=== PATIENT | male | born 1990 | race Caucasian/White ===

== ENCOUNTER 2016-12-20 15:55 | Emergency (ER) | payer OTHER ==
--- NOTE | 2016-12-20 16:54 | ED NURSING NOTES ---
Clinical Report - Nurses [facility] [address] [place] [address] 12/20/2016 15:56 Patient: ROLO ZAMORA TRIAGE Triage time 1627 PM. Chief Complaint: SORE THROAT. Alert. No acute distress. --16:32 Zac Jefferson R.N. 16:27 12/20/16. BP: 124/77 taken on the left arm, via an automated monitor, while lying. HR: 93. RR: 16. O2 saturation: 97%. Temp: 98.7 F (oral). Pain level now: cannot qualify. --16:32 Zac Jefferson R.N. Weight: 122.4 kg stated. Height/Length: 73 inches Per Patient. BMI: 35.6. --16:27 Zac Jefferson R.N. Medications Topamax Oral. --16:29 Zac Jefferson R.N. Allergies NKDA. --16:28 Zac Jefferson R.N. History Arrived by private vehicle. Historian: patient. Accompanied by family. Onset. (about 2 months). ( Patient presents to the ED with symptoms of cough, congestion, and sore throat x 2 months. Patient reports left sided tonsilar pain and right sided ear pain. Patient states that he is coughing up brownish mucus.). He has had mouth sores and sinus pain. He has had mild right ear pain. 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 PAST MEDICAL HX: Strep throat. SOCIAL HX: Current every day light tobacco smoker (cigarette)- less than 1/2 a pack per day. Regular alcohol use. History of drug use. (no). FALL RISK ASSESSMENT: Fall risk assessment completed. No fall risk identified. NUTRITIONAL RISK ASSESSMENT: The nutritional risk assessment revealed no deficiencies. FUNCTIONAL ASSESSMENT: Functional assessment: no impairments noted. LEARNING NEEDS ASSESSMENT: The learning needs assessment revealed no barriers. SKIN INTEGRITY ASSESSMENT: Skin integrity risk assessment completed. No skin integrity risk identified. --16:32 Zac Jefferson R.N. PROBLEMS: Migraine Headache. --16:29 Zac Jefferson R.N. ADDITIONAL SURGERIES: no known surgeries. Interventions ID band on patient. --16:32 Zac Jefferson R.N. PHYSICAL ASSESSMENT Ambulatory to room. GENERAL / NEURO / PSYCH: Alert. Oriented X 4. Appears in no acute distress. HEENT: Sinus tenderness present. Pupils equal, round and reactive to light. Runny nose. Mouth within normal limits upon inspection. No dental injury noted. Mucous membranes are pink. RESPIRATORY: Respirations not labored. CVS: Capillary refill less than 2 seconds. SKIN: Skin is warm and dry. Normal skin turgor. --16:33 Zac Jefferson R.N. DISPOSITION / DISCHARGE Condition at departure: improved. The goals identified in the patient's plan of care were met. No learning barriers present. Reviewed medication(s) side effects, precautions, dosing and course information. Prescription(s) given to the patient. Reviewed fever care instructions. Reviewed referral to a primary care physician. Patient verbalized understanding. Written instructions provided in Micronesian. The patient was discharged home and accompanied by family. He left the Emergency Department ambulatory and via private vehicle. Family member driving. FALL RISK ASSESSMENT: Fall risk assessment completed. No fall risk identified. --17:38 Zac Jefferson R.N. 17:37 12/20/16. BP: 115/72 taken on the left arm, via an automated monitor, while lying. HR: 101. RR: 18. O2 saturation: 98% on room air. Temp: 98.2 F (oral). Pain level now: 0/10. --17:38 Zac Jefferson R.N. Departure time: 1738 PM. --17:38 Zac Jefferson R.N. Locked/Released at 12/20/2016 17:38 by Zac Jefferson R.N.
--- NOTE | 2016-12-20 16:54 | ED NURSING NOTES ---
Clinical Report - Nurses [facility] [address] [place] [address] 12/20/2016 15:56 Patient: ROLO ZAMORA TRIAGE Triage time 1627 PM. Chief Complaint: SORE THROAT. Alert. No acute distress. --16:32 Zac Jefferson R.N. 16:27 12/20/16. BP: 124/77 taken on the left arm, via an automated monitor, while lying. HR: 93. RR: 16. O2 saturation: 97%. Temp: 98.7 F (oral). Pain level now: cannot qualify. --16:32 Zac Jefferson R.N. Weight: 122.4 kg stated. Height/Length: 73 inches Per Patient. BMI: 35.6. --16:27 Zac Jefferson R.N. Medications Topamax Oral. --16:29 Zac Jefferson R.N. Allergies NKDA. --16:28 Zac Jefferson R.N. History Arrived by private vehicle. Historian: patient. Accompanied by family. Onset. (about 2 months). ( Patient presents to the ED with symptoms of cough, congestion, and sore throat x 2 months. Patient reports left sided tonsilar pain and right sided ear pain. Patient states that he is coughing up brownish mucus.). He has had mouth sores and sinus pain. He has had mild right ear pain. 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 PAST MEDICAL HX: Strep throat. SOCIAL HX: Current every day light tobacco smoker (cigarette)- less than 1/2 a pack per day. Regular alcohol use. History of drug use. (no). FALL RISK ASSESSMENT: Fall risk assessment completed. No fall risk identified. NUTRITIONAL RISK ASSESSMENT: The nutritional risk assessment revealed no deficiencies. FUNCTIONAL ASSESSMENT: Functional assessment: no impairments noted. LEARNING NEEDS ASSESSMENT: The learning needs assessment revealed no barriers. SKIN INTEGRITY ASSESSMENT: Skin integrity risk assessment completed. No skin integrity risk identified. --16:32 Zac Jefferson R.N. PROBLEMS: Migraine Headache. --16:29 Zac Jefferson R.N. ADDITIONAL SURGERIES: no known surgeries. Interventions ID band on patient. --16:32 Zac Jefferson R.N. PHYSICAL ASSESSMENT Ambulatory to room. GENERAL / NEURO / PSYCH: Alert. Oriented X 4. Appears in no acute distress. HEENT: Sinus tenderness present. Pupils equal, round and reactive to light. Runny nose. Mouth within normal limits upon inspection. No dental injury noted. Mucous membranes are pink. RESPIRATORY: Respirations not labored. CVS: Capillary refill less than 2 seconds. SKIN: Skin is warm and dry. Normal skin turgor. --16:33 Zac Jefferson R.N. DISPOSITION / DISCHARGE Condition at departure: improved. The goals identified in the patient's plan of care were met. No learning barriers present. Reviewed medication(s) side effects, precautions, dosing and course information. Prescription(s) given to the patient. Reviewed fever care instructions. Reviewed referral to a primary care physician. Patient verbalized understanding. Written instructions provided in Malagasy. The patient was discharged home and accompanied by family. He left the Emergency Department ambulatory and via private vehicle. Family member driving. FALL RISK ASSESSMENT: Fall risk assessment completed. No fall risk identified. --17:38 Zac Jefferson R.N. 17:37 12/20/16. BP: 115/72 taken on the left arm, via an automated monitor, while lying. HR: 101. RR: 18. O2 saturation: 98% on room air. Temp: 98.2 F (oral). Pain level now: 0/10. --17:38 Zac Jefferson R.N. Departure time: 1738 PM. --17:38 Zac Jefferson R.N. Locked/Released at 12/20/2016 17:38 by Zac Jefferson R.N.
--- NOTE | 2016-12-20 16:54 | ED CLINICAL REPORT ---
Clinical Report - Physicians/Mid Levels [facility] [address] [place] [address] 12/20/2016 15:56 Patient: ROLO ZAMORA Time Seen: 16:22; initial patient contact, initial documentation, patient care assumed. Arrived- By private vehicle. Historian- patient. HISTORY OF PRESENT ILLNESS Chief Complaint: COUGH and SORE THROAT. This started about 2 months ago and is still present. The illness is described as severe. The patient has had a cough, nasal congestion, sinus pressure, sinus drainage and a nasal discharge. He has had scant amounts of thin, brown sputum. No difficulty breathing, chest discomfort or pain, fever or muscle aches. He has had a sore throat (L tonsil feels swollen). It has been associated with pain upon swallowing. No difficulty swallowing. He has had mild right ear pain. (mouth sores). Additional history - No known contact with a sick individual. No recent travel. Similar symptoms previously: None. Recent medical care: The patient was seen recently at another facility in the emergency department. ( went to another er around 11/26, dx with sinusitis, given nasal spray, no better, no f/u). REVIEW OF SYSTEMS The patient has had a severe, pressure-like frontal and facial headache. No vomiting or diarrhea. All systems otherwise negative, except as recorded above. PAST HISTORY See nurses notes. PROBLEMS: Migraine Headache. --16:29 Zac Jefferson R.N. ADDITIONAL SURGERIES: no known surgeries. SOCIAL HISTORY Light tobacco smoker. Regular alcohol use. Not exposed to second-hand smoke at home. No drug use. No recent travel. Is a local resident. FAMILY HISTORY Negative. ADDITIONAL NOTES The nursing notes have been reviewed with agreement regarding the chief complaint, HPI, ROS, PMH and patient medications and allergies. PHYSICAL EXAM Vital Signs: 12/20/2016 16:27 BP: 124/77. HR: 93. RR: 16. O2 saturation: 97%. Temp: 98.7 F. Have been reviewed as normal and appear to be correct. Appearance: Alert. No acute distress. Eyes: Pupils equal, round and reactive to light. Eyes normal inspection. ENT: Ears normal. Nose normal. Pharynx normal. Uvula midline. Neck: Normal inspection. Neck supple. CVS: Normal heart rate and rhythm. Heart sounds normal. Pulses normal. Respiratory: No respiratory distress. Breath sounds normal. Back: Normal inspection. Skin: Skin warm and dry. Normal skin color. No rash. Normal skin turgor. Extremities: Extremities exhibit normal ROM. No lower extremity edema. Neuro: Oriented X 3. No motor deficit. No sensory deficit. PROGRESS AND PROCEDURES Patient counseled in person regarding the patient's stable condition and diagnosis. 16:54. Differential Diagnosis: Other possible considerations: flu, viral illness, uri, sinusitis, pneumonia, bronchitis. Above considerations are based on history and physical exam. Differential diagnosis was discussed with patient. Disposition: Discharged home in good and unchanged condition (16:54). Condition: good and stable. CLINICAL IMPRESSION Recurrent sinusitis INSTRUCTIONS Drink plenty of fluids. Warnings: GENERAL WARNINGS: Return or contact your physician immediately if your condition worsens or changes unexpectedly, if not improving as expected, or if other problems arise. Specifically return if problem worsens. Prescription Medications: Augmentin 875 mg: take 1 tablet orally every 12 hours for 10 days. No refill. Motrin 800 mg tablets: take 1 tablet orally every 8 hours as needed for pain. Dispense thirty (30). No refills. Substitution is permissible. Follow-up: Follow up with your doctor in about five days even if well. Call for an appointment. Summary of care provided to patient. Understanding of the discharge instructions verbalized by patient. (Electronically signed by Denisse Ty A.R.N.P. 12/20/2016 20:21)
--- NOTE | 2016-12-20 20:23 | ED MAR SUMMARY ---
..... Medication Administration Record [facility] [address], [place] [id number] Patient: MARISA ZAMORACJ Aragon Visit ID: [id number] 26y, M Weight: 122.4 kg Height/Length: 73 in BMI: 35.6 ALLERGIES: NKDA
--- NOTE | 2016-12-20 20:23 | ED DISCHARGE INSTRUCTIONS ---
Patient: ROLO ZAMORA General Instructions [facility] VisitID: [id number] [place] [address] 26y, M Registration Date/Time: 12/20/2016 Recurrent sinusitis INSTRUCTIONS Drink plenty of fluids. Warnings: GENERAL WARNINGS: Return or contact your physician immediately if your condition worsens or changes unexpectedly, if not improving as expected, or if other problems arise. Specifically return if problem worsens. Prescription Medications: Augmentin 875 mg: take 1 tablet orally every 12 hours for 10 days. No refill. Motrin 800 mg tablets: take 1 tablet orally every 8 hours as needed for pain. Dispense thirty (30). No refills. Substitution is permissible. Follow-up: Follow up with your doctor in about five days even if well. Call for an appointment. Summary of care provided to patient. Understanding of the discharge instructions verbalized by patient. ADDITIONAL INFORMATION Sinusitis [Abx Tx] The sinuses are air-filled spaces within the bones of the face. They connect to the inside of the nose. Sinusitis is an inflammation of the tissue lining the sinus cavity. Sinus inflammation can occur during a cold or hay-fever (allergies to pollens and other particles in the air) and cause symptoms of sinus congestion and fullness. A sinus infection causes fever, headache and facial pain. There is usually green or yellow drainage from the nose or into the back of the throat (post-nasal drip). Antibiotics are prescribed to treat this condition. Home Care: Drink plenty of water, hot tea, and other liquids to stay well hydrated. This thins the mucus and promotes sinus drainage. Apply heat to the painful areas of the face. Use a towel soaked in hot water. Or, packer inspector the shower and direct the hot spray onto your face. This is a good way to inhale warm water vapor and get heat on your face at the same time. (Cover your mouth and nose with your hands so you can still breathe as you do this.) Use a vaporizer with products such as Vicks VapoRub (contains menthol) at night. Suck on peppermint, menthol or eucalyptus hard candies during the day. An expectorant containing guaifenesin (such as Robitussin), helps to thin the mucus and promote drainage from the sinuses. Ccui-hle-cnirhtn decongestants may be used unless a similar medicine was prescribed. Nasal sprays work the fastest. Use one that contains phenylephrine (Nasir-synephrine, Sinex and others) or oxymetazoline (Afrin). First blow the nose gently to remove mucus, then apply the drops. Do not use these medicines more often than directed on the label or for more than three days or symptoms may worsen. You may also use tablets containing pseudoephedrine (Sudafed). Many sinus remedies combine ingredients, which may increase side effects. Read the labels or ask the pharmacist for help. NOTE: Persons with high blood pressure should not use decongestants. They can raise blood pressure. Antihistamines are useful if allergies are a cause of your sinusitis. The mildest one is chlorpheniramine (available without a prescription). The dose for adults is 8-12mg three times a day. [NOTE: Do not use chlorpheniramine if you have glaucoma or if you are a man with trouble urinating due to an enlarged prostate.] Claritin (loratidine) is an antihistamine that causes less drowsiness and is a good alternative for daytime use. Do not use nasal rinses or irrigation during an acute sinus infection, unless advised by your doctor. Rinsing may spread the infection to other sinuses. You may use acetaminophen (Tylenol) or ibuprofen (Motrin, Advil) to control pain, unless another pain medicine was prescribed. [ NOTE: If you have chronic liver or kidney disease or ever had a stomach ulcer, talk with your doctor before using these medicines.] (Aspirin should never be used in anyone under 18 years of age who is ill with a fever. It may cause severe liver damage.) Finish the full course, even if you are feeling better after a few days. Follow Up with your doctor or this facility in one week or as instructed by our staff if not improving. Get Prompt Medical Attention if any of the following occur: Facial pain or headache becomes more severe Stiff neck Unusual drowsiness or confusion, or not acting like your normal self Swelling of the forehead or eyelids Vision problems including blurred or double vision Fever of 100.4F (38C) or higher, or as directed by your healthcare provider Seizure Amoxicillin Trihydrate, Clavulanate Potassium Oral tablet What is this medicine? AMOXICILLIN; CLAVULANIC ACID (a mox i SPENCER in; SERGIO donis freddie ic id) is a penicillin antibiotic. It is used to treat certain kinds of bacterial infections. It will not work for colds, flu, or other viral infections. How should I use this medicine? Take this medicine by mouth with a full glass of water. Follow the directions on the prescription label. Take at the start of a meal. Do not crush or chew. If the tablet has a score line, you may cut it in half at the score line for easier swallowing. Take your medicine at regular intervals. Do not take your medicine more often than directed. Take all of your medicine as directed even if you think you are better. Do not skip doses or stop your medicine early. Talk to your special education paraprofessional regarding the use of this medicine in children. Special care may be needed. What side effects may I notice from receiving this medicine? Side effects that you should report to your doctor or health care transitions nurse as soon as possible: allergic reactions like skin rash, itching or hives, swelling of the face, lips, or tongue breathing problems dark urine fever or chills, sore throat redness, blistering, peeling or loosening of the skin, including inside the mouth seizures trouble passing urine or change in the amount of urine unusual bleeding, bruising unusually weak or tired white patches or sores in the mouth or throat Side effects that usually do not require medical attention (report to your doctor or health care transitions nurse if they continue or are bothersome): diarrhea dizziness headache nausea, vomiting stomach upset vaginal or anal irritation What may interact with this medicine? allopurinol anticoagulants control pills methotrexate probenecid What if I miss a dose? If you miss a dose, take it as soon as you can. If it is almost time for your next dose, take only that dose. Do not take double or extra doses. Where should I keep my medicine? Keep out of the reach of children. Store at room temperature below 25 degrees C (77 degrees F). Keep container tightly closed. Throw away any unused medicine after the expiration date. What should I tell my health care provider before I take this medicine? They need to know if you have any of these conditions: bowel disease, like colitis kidney disease liver disease mononucleosis an unusual or allergic reaction to amoxicillin, penicillin, cephalosporin, other antibiotics, clavulanic acid, other medicines, foods, dyes, or preservatives or trying to get breast-feeding What should I watch for while using this medicine? Tell your doctor or health care transitions nurse if your symptoms do not improve. Do not treat diarrhea with over the counter products. Contact your doctor if you have diarrhea that lasts more than 2 days or if it is severe and watery. If you have diabetes, you may get a false-positive result for sugar in your urine. Check with your doctor or health care transitions nurse. control pills may not work properly while you are taking this medicine. Talk to your doctor about using an extra method of control. Ibuprofen Oral tablet What is this medicine? IBUPROFEN (eye BYOO proe fen) is a non-steroidal anti-inflammatory drug (NSAID). It is used for dental pain, fever, headaches or migraines, osteoarthritis, rheumatoid arthritis, or painful monthly periods. It can also relieve minor aches and pains caused by a cold, flu, or sore throat. How should I use this medicine? Take this medicine by mouth with a glass of water. Follow the directions on the prescription label. Take this medicine with food if your stomach gets upset. Try to not lie down for at least 10 minutes after you take the medicine. Take your medicine at regular intervals. Do not take your medicine more often than directed. A special MedGuide will be given to you by the pharmacist with each prescription and refill. Be sure to read this information carefully each time. Talk to your special education paraprofessional regarding the use of this medicine in children. Special care may be needed. What side effects may I notice from receiving this medicine? Side effects that you should report to your doctor or health care transitions nurse as soon as possible: allergic reactions like skin rash, itching or hives, swelling of the face, lips, or tongue black or bloody stools, blood in the urine or in vomit breathing problems changes in vision chest pain general ill feeling or flu-like symptoms nausea or vomiting redness, blistering, peeling or loosening of the skin, including inside the mouth slurred speech or weakness on one side of the body stomach pain unexplained weight gain or swelling unusually weak or tired yellowing of eyes or skin Side effects that usually do not require medical attention (report to your doctor or health care transitions nurse if they continue or are bothersome): constipation or diarrhea dizziness gas or heartburn stomach upset What may interact with this medicine? Do not take this medicine with any of the following medications: cidofovir ketorolac methotrexate pemetrexed This medicine may also interact with the following medications: alcohol aspirin diuretics lithium other drugs for inflammation like prednisone warfarin What if I miss a dose? If you miss a dose, take it as soon as you can. If it is almost time for your next dose, take only that dose. Do not take double or extra doses. Where should I keep my medicine? Keep out of the reach of children. Store at room temperature between 15 and 30 degrees C (59 and 86 degrees F). Keep container tightly closed. Throw away any unused medicine after the expiration date. What should I tell my health care provider before I take this medicine? They need to know if you have any of these conditions: asthma cigarette smoker drink more than 3 alcohol containing drinks a day heart disease or circulation problems such as heart failure or leg edema (fluid retention) high blood pressure kidney disease liver disease stomach bleeding or ulcers an unusual or allergic reaction to ibuprofen, aspirin, other NSAIDS, other medicines, foods, dyes, or preservatives or trying to get breast-feeding What should I watch for while using this medicine? Tell your doctor or healthcare professional if your symptoms do not start to get better or if they get worse. This medicine does not prevent heart attack or stroke. In fact, this medicine may increase the chance of a heart attack or stroke. The chance may increase with longer use of this medicine and in people who have heart disease. If you take aspirin to prevent heart attack or stroke, talk with your doctor or health care transitions nurse. Do not take other medicines that contain aspirin, ibuprofen, or naproxen with this medicine. Side effects such as stomach upset, nausea, or ulcers may be more likely to occur. Many medicines available without a prescription should not be taken with this medicine. This medicine can cause ulcers and bleeding in the stomach and intestines at any time during treatment. Ulcers and bleeding can happen without warning symptoms and can cause . To reduce your risk, do not smoke cigarettes or drink alcohol while you are taking this medicine. You may get drowsy or dizzy. Do not drive, use machinery, or do anything that needs mental alertness until you know how this medicine affects you. Do not stand or sit up quickly, especially if you are an older patient. This reduces the risk of dizzy or fainting spells. This medicine can cause you to bleed more easily. Try to avoid damage to your teeth and gums when you brush or floss your teeth. You have been given the following additional information: Sinusitis, Abx Tx Amoxicillin Trihydrate, Clavulanate Potassium Oral tablet Ibuprofen Oral tablet (Electronically signed by Denisse Ty A.R.N.P. 12/20/2016 20:21)
--- NOTE | 2016-12-20 20:23 | ED MED RECONCILIATION SUMMARY ---
Patient: ROLO ZAMORA Medication Reconciliation Report [facility] VisitID: [id number] [address] [place] [address] 26y, M Registration Date/Time: 12/20/2016 Weight: 122.4 kg Height/Length: 73 in. BMI: 35.6 ALLERGIES: NKDA The patient's Home Medications are listed below: THE FOLLOWING MEDICATIONS NEED TO BE RECONCILED: Topamax Oral The source(s) of the original Home Medication information: Not obtained. The following Medications were given to the patient in the Emergency Department: None. The following Medications were prescribed to the patient: Augmentin 875 mg: take 1 tablet orally every 12 hours for 10 days. No refill. -- Denisse Ty, Danita.R.N.P. Motrin 800 mg tablets: take 1 tablet orally every 8 hours as needed for pain. Dispense thirty (30). No refills. Substitution is permissible. -- Denisse Ty A.R.N.P.
--- NOTE | 2016-12-20 20:23 | ED MED RECONCILIATION SUMMARY ---
Patient: ROLO ZAMORA Medication Reconciliation Report [facility] VisitID: [id number] [address] [place] [address] 26y, M Registration Date/Time: 12/20/2016 Weight: 122.4 kg Height/Length: 73 in. BMI: 35.6 ALLERGIES: NKDA The patient's Home Medications are listed below: THE FOLLOWING MEDICATIONS NEED TO BE RECONCILED: Topamax Oral The source(s) of the original Home Medication information: Not obtained. The following Medications were given to the patient in the Emergency Department: None. The following Medications were prescribed to the patient: Augmentin 875 mg: take 1 tablet orally every 12 hours for 10 days. No refill. -- Denisse Ty, Danita.R.N.P. Motrin 800 mg tablets: take 1 tablet orally every 8 hours as needed for pain. Dispense thirty (30). No refills. Substitution is permissible. -- Denisse Ty A.R.N.P.
--- NOTE | 2016-12-20 20:23 | ED MAR SUMMARY ---
..... Medication Administration Record [facility] [address] [place], [place] [id number] Patient: MARISA ZAMORACJ Aragon Visit ID: [id number] 26y, M Weight: 122.4 kg Height/Length: 73 in BMI: 35.6 ALLERGIES: NKDA
== END 2016-12-20 17:39 | disposition home or self-care (01) ==
LOC: ED SRH 15:55
DX: J32.9 Chronic sinusitis, unspecified (principal); F17.210 Nicotine dependence, cigarettes, uncomplicated